=== PATIENT | female | born 1950 | race Caucasian/White ===

== ENCOUNTER 2024-12-24 19:10 | Inpatient (IN) | payer MEDICARE, OTHER, SELFPAY ==
[2024-12-24] VITALS (9 sets, daily range): BP systolic 130–162; BP diastolic 63–108; BMI 38.9; BMI 38.3
--- NOTE | 2024-12-24 14:36 | ED.GENMED ---
History of Present Illness
General
Chief Complaint: Breathing Problem
Source: patient and family
Exam Limitations: none
Time Seen by Provider: 12/24/24 14:21
History of Present Illness
History of Present Illness:
74yoF with a history of endometrial cancer s/p hysterectomy/radiation about a year ago currently in remission, atrial fibrillation s/p ablation, hypertension, hyperlipidemia, type 2 diabetes presenting with her daughter for evaluation of an abnormal
outpatient CT scan. Patient saw her gynecologic oncologist about 1.5 weeks ago and was complaining of fatigue. CT chest was ordered which was performed today. CT revealed acute bilateral segmental pulmonary emboli and she was advised to go to the
nearest ED for evaluation. Patient denies any shortness of breath. She does have some mild chest discomfort intermittently but nothing currently. She started to experience some discomfort in her right calf a few days ago. No syncope. Of note,
patient was taken off of her Xarelto about a month ago after undergoing an ablation for afib earlier this year.
Phy Exam
General Physical Exam
General Presentation: well appearing and no apparent distress
General Skin: warm and dry
General Habitus: normal
General Mental: alert
ENT Exam
ENT Exam: normocephalic
Cardiovascular Exam
Cardiovascular Exam: regular rate/rhythm, no edema and no murmur
Pulmonary Exam
Pulmonary Exam: lungs clear, no respiratory distress, no rales, no crackles, no rhonchi and no wheezing
Neurological Exam
Neurological Exam: alert
Pelon Coma Scale
Eye Opening: Spontaneous
Verbal Response: Oriented
Motor Response: Obeys Commands
GCS Total Score: 15
Musculoskeletal Exam
Musculoskeletal Exam: other (+R calf tenderness without skin changes or pitting edema)
Skin Exam
Skin Exam: normal color and warm/dry
Psychiatric Exam
Psychiatric Exam: normal mood/affect
Scores
Heart Failure Risk
Heart Failure Risk Score: Not Applicable
Course
Orders/Labs/Results
Orders:
Orders
12/24/24 14:34
Electrocardiogram (*1) Urgent
Reason for Study: Chest Pain
Cardiac Monitoring- Treatment ONCE
EKG- Treatment ONCE
Venous Doppler Lwr Ext Bilat [US Periph Venous LOWER Ext Ian] Urgent
Comment:
Reason For Exam: Recent dx of PE, R calf pain
12/24/24 14:40
Complete Blood Count/With Diff Urgent
Comprehensive Metabolic Panel Urgent
NT-proBNP Urgent
Troponin I Urgent
12/24/24 15:22
Case Management Consult ONCE
Case Management Consult: Discharge Planning
Comment: Xarelto pricing
12/24/24 16:12
Heparin 8,500 units IV NOW STA
Nursing to Place Non Medication Order As Directed
Physician Order: PTT 6 hours after initial start of Heparin infusion
12/24/24 16:15
Heparin 49212 Units/250 ml 25,000 units in 250 ml IV PER PROTOCOL
Weight to be used for heparin protocol in kilograms (kg):: 106
Protocol:: DVT/PE
PTT Goal Range to be used:: PTT 73 to 111 seconds
Order type:: Initial
INITIAL Infusion Dose (UNITS/KG/hr) & then follow protocol:: 18 units/kg/hr
Infusion Dose in UNITS/hr & then follow protocol (UNITS/hr):: 1,900
INFUSION RATE in mL/hr & then follow protocol (mL/hr):: 19
For DVT/PE algorithm, re-bolus for low PTT?: Yes
PTT less than or equal to 64 seconds:: Re-bolus 80 units/kg (max 10,000units). Increase by 400 units/hr
(+ 4mL/hr)
PTT 64.1 to 72.9 seconds:: Re-bolus 40 units/kg (max 5,000 units). Increase by 200 units/hr
(+ 2mL/hr)
PTT 73 to 111 seconds:: Target Range. No change in rate.
PTT 111.1 to 130.9 seconds:: Decrease rate by 200 units/hr (- 2 mL/hr)
PTT 131 to 199.9 seconds:: HOLD for 1 hr. Then decrease by 300 units/hr (- 3mL/hr)
PTT greater than or equal to 200 seconds:: HOLD for 2 hrs & Notify Provider. Then decrease by 400 units/hr
(- 4mL/hr)
Lab follow-up:: Each change, PTT q6h until 2 consecutive are therapeutic. Then
PTT daily.
12/24/24 16:19
PTT Urgent
Comment: Obtain baseline before beginning heparin infusion if not already collected
12/24/24 16:26
Heparin 8,500 units IV PRN PRN
12/24/24 16:27
Heparin 4,200 units IV PRN PRN
Abnormal Lab Results
12/24/24
14:40
RBC 3.77 L 10^6/uL
(4.20-5.40)
Hgb 9.7 L g/dL
(12.0-16.0)
Hct 31.9 L %
(37.0-47.0)
MCH 25.7 L pg
(27.0-31.0)
MCHC 30.4 L g/dL
(33.0-37.0)
RDW 16.1 H %
(11.5-14.5)
MPV 11.2 H fL
(7.4-10.4)
Absolute Monos (auto) 0.7 H 10^3/uL
(0.1-0.6)
Chloride 110 H mmol/L
(98-107)
BUN 22 H mg/dl
(7-17)
Glucose 131 H mg/dl
(70-99)
12/24/24 14:40
12/24/24 14:40
Vital Signs
Initial and Last Documented VS:
Initial Vital Signs
Temp Pulse Resp BP Pulse Ox
98.3 F 74 15 162/90 98
12/24/24 13:46 12/24/24 13:46 12/24/24 13:46 12/24/24 13:46 12/24/24 13:46
Last Documented Vital Signs
Temp Pulse Resp BP Pulse Ox
98.3 F 68 17 130/71 98
12/24/24 13:46 12/24/24 15:00 12/24/24 15:00 12/24/24 15:00 12/24/24 15:00
MDM/Problems Addressed
Differential Diagnosis Includes:
74yoF presenting after outpatient CT chest showed bilateral PEs. C/o fatigued but denies SOB. Also having R calf pain. Taken off of Xarelto 1 month ago. VSS and oxygen saturation is 98% on room air. She is well-appearing in no distress.
Differential diagnosis includes but is not limited to: Pulmonary embolism, DVT, heart strain
Initial ED plan: Copy of radiology report from outpatient CT able to be obtained. Imaging shows bilateral acute segmental pulmonary emboli. Will check cardiac labs, EKG, and venous duplex.
*Pulse Oximetry
SaO2: 98
Oxygen Mode of Delivery: Room air
Patient hypoxic: no (98%)
*EKG
Interpreted by ED Provider?: Yes
EKG Intrepretation Date: 12/24/24
Heart Rate: 65
Rate: normal
Rhythm: sinus
Alsey: normal axis
Interval: normal interval
QRS Pattern: normal QRS
Ischemia: other (Nonspecific T wave abnormality in anterior leads)
*Critical Care Note
Total Time (30-74mins, 75-104mins- exclusive of procedures): Not Applicable
Update Note
Update Note:
Both troponin and BNP are within normal limits. Venous duplex shows a occlusive thrombus in the right posterior tibial vein. Attempted to discharge patient with oral anticoagulation as she meets criteria for low risk PE. Patient's family member
is an GEOTHERMAL PRODUCTION MANAGER and does not feel comfortable with patient going home. IV heparin ordered and patient admitted for further management.
ED Attending Note
-
Portions of this chart may have been created with voice recognition software.� Occasional wrong word or��sound alike� substitutions may have occurred due to the inherent limitations of voice recognition software.
Discharge Plan
Departure
Patient Disposition: Admit
Date of Disposition: 12/24/24
Time of Disposition: 16:46
Presentation/result/management discussed w/ accepting MD/DO: Hospitalist
Discharge Problem:
Bilateral pulmonary embolism, Acute deep vein thrombosis (DVT) of right tibial vein
Prescriptions:
No Action
metoprolol succinate [Toprol XL] 50 mg Tablet Extended Release 24 Hr
50 mg PO BID
aspirin 81 mg Tablet,Delayed Release (Dr/Ec)
162 mg PO QPM
metformin 1,000 mg Tablet
1,000 mg PO BID
levothyroxine [Synthroid] 125 mcg Tablet
125 mcg PO DAILY
rosuvastatin [Crestor] 5 mg Tablet
5 mg PO QPM
Tradjenta 5 mg Tablet
5 mg PO DAILY
Referrals:
Isidro Edge CRNP [Family Provider, General]
Interventions
Interventions:
*Risk Screen - Suicide Last Done: 12/24/24 13:46
*General Assessment Last Done: 12/24/24 13:46
*Neglect/Abuse Screening Last Done: 12/24/24 13:46
ED- Cardiac Assessment Last Done: 12/24/24 14:54
ED- Pulmonary Assessment Last Done: 12/24/24 14:54
Discharge Date and Time
Print Language: Senegalese
[2024-12-24 14:51] LABS: Hematocrit 31.9 % (37.0-47.0); Hemoglobin 9.7 g/dL (12.0-16.0); Mean Corp Hgb Conc. 30.4 g/dL (33.0-37.0); Mean Corpuscular Volume 84.6 fL (81.0-99.0); Nucleated Red Blood Cells % 0 %; Platelet Count 181 10^3/uL (130-400); Red Cell Dist. Width 16.1 % (11.5-14.5)
[2024-12-24 15:16] LABS: ALT (SGPT) 19 U/L (0-35); AST (SGOT) 22 U/L (14-36); Albumin 3.8 g/dl (3.5-5.0); Alkaline Phosphatase 61 U/L (38-126); Blood Urea Nitrogen 22 mg/dl (7-17); Calcium 8.8 mg/dl (8.4-10.2); Carbon Dioxide 22 mmol/L (22-30); Chloride 110 mmol/L (98-107); Estimated Creatinine Clearance 60 ml/min; Glucose 131 mg/dl (70-99); Potassium 4.5 mmol/L (3.5-5.1); Sodium 140 mmol/L (135-145); Total Protein 6.6 g/dl (6.3-8.2); eGFR 59.12
[2024-12-24 15:35] LABS: Troponin I < 0.012 ng/ml
--- NOTE | 2024-12-24 16:23 | CM ---
CM received consult regarding Xarelto pricing but then was told pt is being admitted. I did attempt to reach [facility] but no one picked up in the pharmacy.
I met with pt and her daughter Theresa arguelles in ED. Pt is Omani speaking. Pt lives alone in apartment, has elevator access.
Independent in ADLs and personal care at baseline, ambulates with walker. Per daughter pt frequently stays with her also.
Will be staying with her daughter, 2 story home but has first floor set up.
PCP: Isidro Edge
Pharmacy: [facility]. [phone]
Anticipate discharge home pending ongoing medical evaluation, watch for needs
[2024-12-24] MEDS: HEPARIN 8500 UNITS IV (16:41)
[2024-12-24] MEDS: HEPARIN 25000 UNITS/250 ML IV (16:41)
[2024-12-24 16:43] LABS: APTT 25.7 Sec (23.4-35.0)
--- NOTE | 2024-12-24 18:03 | HPS.HSE ---
Addendum entered and electronically signed by Imsael Garcia MD 12/24/24 19:14:
74 y/o female with cardiac ablation in August. Xarelto was discontinued in October. Patient saw her oncologist as a routine follow-up and she was really tired therefore they ordered a CT because she also had some shortness of breath. CT was ordered
as outpatient showed PE. Also found to have a DVT
Ultrasound of the lower extremity-occlusive thrombus in the right posterior tibial vein
EKG-sinus rhythm incomplete right bundle branch block
CT-bilateral acute segmental PE. Indeterminate small pulmonary nodules largest 5 mm. Granulomatous calcifications in the right lung and right hilum/mediastinum in keeping with prior granulomatous infection
CVS: S1-S2 normal
Chest: CTA B/L
Abdomen: Soft, NT / Bowel sounds present
Extremities: No edema, mild tenderness right calf
AFTERSCHOOL BABYSITTER: Non focal exam
# DVT and PE
Weight-based Lovenox 100 mg twice daily
Needs workup with magazine hand as outpatient
Eventual transition to Xarelto or Eliquis
Hold off on the aspirin
# History of paroxysmal A-fib
Status post ablation in August 2024
Not on anticoagulation anymore since October
Continue metoprolol XL 50 mg twice daily
# Anemia-check iron studies and B12
# Diabetes-hemoglobin A1c needs to be updated
Continue linagliptin, Accu-Cheks and sliding scale coverage
Hold metformin because of IV dye
# Hypothyroidism-continue levothyroxine
# Hypertension-continue beta-blockers
# History of uterine cancer status post hysterectomy last year. Follows up with Dr. Simpson at [facility]
# Hyperlipidemia-continue Crestor
# Obesity with a BMI of 38
# Full code
Discussed with daughter at bedside
time over 75 min
Part of this note was created using voice recognition system. Occasional wrong word or��sound alike� substitutions may have inadvertently occurred due to the inherent limitations of voice recognition software. If noted kindly bring it to my
attention for correction.
Original Note:
Family Physician
-
Family Physician: ROSALINA Smith
Chief Complaint
-
sob,chest pain fatigue
History of Present Illness
74yoF with a history of endometrial cancer s/p hysterectomy/radiation about a year ago currently in remission, atrial fibrillation s/p ablation, hypertension, hyperlipidemia, type 2 diabetes presenting with her daughter for evaluation of an abnormal
outpatient CT scan. Patient saw her gynecologic oncologist about 1.5 weeks ago and was complaining of fatigue, sob with exertion and chest pain. CT chest was ordered which was performed today. CT revealed acute bilateral segmental pulmonary
emboli and she was advised to go to the nearest ED for evaluation. her Xarelto was discontinued in October s/p cardiac ablation in August for atrial fib. Patient denied headache, dizziness or syncope. Patient denied any fever, chills, cough,
congestion. Patient denied any abdominal pain, nausea, vomiting or diarrhea. Patient denied dysuria or hematuria.
Patient initiated on heparin drip. Admitting for further manage
Medical History
Past Medical History
Past Medical History: Reports Other
Additional Past Medical History:
Uterine cancer
History diabetes
Hypertension
Hypothyroidism
Past Surgical History: Reports Other
Additional Past Surgical History:
Cardiac ablation, hysterectomy
Social History
Tobacco: Non-smoker
Alcohol: None
Drug: None
Family History
Family History: Not pertinent
Allergies / Home Medications
Allergies reflects when Allergies were last updated in [facility].
Home Medications with original date entered in [facility]
Allergy/Medication List:
Allergies
Allergy/AdvReac Type Severity Reaction Status Date / Time
morphine Allergy Vomiting Verified 12/24/24 13:50
Home Medications
aspirin 81 mg tablet,delayed release 162 mg PO QPM 12/24/24
levothyroxine 125 mcg tablet (Synthroid) 125 mcg PO DAILY 12/24/24
linagliptin 5 mg tablet (Tradjenta) 5 mg PO DAILY 12/24/24
metformin 1,000 mg tablet 1,000 mg PO BID 12/24/24
metoprolol succinate 50 mg tablet,extended release 24 hr (Toprol XL) 50 mg PO BID 12/24/24
rosuvastatin 5 mg tablet (Crestor) 5 mg PO QPM 12/24/24
Review of Systems
-
Constitutional: Reports No Symptoms
EENT: Reports No Symptoms
Respiratory: Reports Trouble Breathing
Cardiac: Reports Chest Pain
Abdomen/GI: Reports No Symptoms
: Reports No Symptoms
Musculoskeletal: Reports No Symptoms
Skin: Reports No Symptoms
Neurological: Reports No Symptoms
Endocrine: Reports No Symptoms
Hematologic/Lymphatic: Reports No Symptoms
Psych: Reports No Symptoms
Physical Exam
Vital Signs
Vital Signs
Temp Pulse Resp BP Pulse Ox
98.3 F 68 17 130/71 98
12/24/24 13:46 12/24/24 15:00 12/24/24 15:00 12/24/24 15:00 12/24/24 15:00
Physical Exam
General: Well Developed, Well Nourished and No Apparent Distress
HEENT: NormoCephalic, Moist mucous membranes and Atraumatic
Respiratory: Clear
Cardiac: S1/S2 and Regular Rhythm; No Murmur or Rub
GI: Soft, Non Tender, Non Distended and Normal Bowel Sounds; No Organomegaly
Rectal: Deferred by Provider
Musculoskeletal: No Clubbing, No Cyanosis and Other (Bilateral lower extremities)
Skin: No Rash
Neuro: AO x 3 and Nonfocal/grossly intact
Psych: Calm
Laboratory Results
-
12/24/24 14:40
12/24/24 14:40
Laboratory Results
APTT 25.7 Sec (23.4-35.0) 12/24/24 16:19
Total Bilirubin 0.4 mg/dl (0.2-1.3) 12/24/24 14:40
AST 22 U/L (14-36) 12/24/24 14:40
ALT 19 U/L (0-35) 12/24/24 14:40
Alkaline Phosphatase 61 U/L (38-126) 12/24/24 14:40
Troponin I < 0.012 ng/ml 12/24/24 14:40
Data Reviewed
-
CT Scan: Report Reviewed by me
Lab Data: Labs Reviewed by me
Impression/Plan
-
# Bilateral segmental PEs
# Right tibial DVT
- initiated on Lovenox
- Duplex with impression of no evidence of deep venous thrombosis of the left lower extremity.Occlusive thrombus in the right posterior tibial vein.
# Anemia likely chronic
- Hemoglobin 9.7
- No active bleeding
- Obtain iron panel
# Hypothyroidism
- Levothyroxine continued
# Type 2 diabetes
- Tradjenta, hold metformin
- Sliding scale
- CHO diet
# History of paroxysmal A-fib
- Cardiac ablation in August, since then patient is in normal sinus rhythm
- Metoprolol continued
#hxt of uterine ca
-s/p hysterectomy in remission.
# Hyperlipidemia
- Rosuvastatin continue
# CODE STATUS full code
-
[2024-12-24 18:51] LABS: Iron 35 ug/dl (37-170)
[2024-12-24 19:01] LABS: Total Iron Binding Capacity 388 ug/dl (265-497)
[2024-12-24 19:27] LABS: Ferritin 6.4 ng/ml (11.1-264.0)
[2024-12-24] MEDS: TYLENOL 1000 MG PO (19:40)
[2024-12-24 19:59] LABS: Folate 5.3 ng/ml (2.76-20); Vitamin B12 > 1000 pg/ml (239-931)
[2024-12-24] MEDS: LOVENOX 100 MG SC (20:00)
[2024-12-24] MEDS: TOPROL XL 50 MG PO (22:28)
[2024-12-24 22:29] LABS: Glucose - Point of Care 140 mg/dl (70-99)
[2024-12-25 03:36] VITALS: BP 118/53
[2024-12-25] MEDS: SYNTHROID 125 MCG PO (05:28)
[2024-12-25 07:50] VITALS: BP 155/80
[2024-12-25 07:56] LABS: Hematocrit 31.0 % (37.0-47.0); Hemoglobin 9.6 g/dL (12.0-16.0); Mean Corp Hgb Conc. 31.0 g/dL (33.0-37.0); Mean Corpuscular Volume 83.6 fL (81.0-99.0); Platelet Count 175 10^3/uL (130-400); Red Cell Dist. Width 15.9 % (11.5-14.5)
[2024-12-25 08:26] LABS: Glucose - Point of Care 137 mg/dl (70-99)
[2024-12-25 09:02] LABS: Glycohemoglobin (HgbA1c) 7.8 % (4.0-5.6)
[2024-12-25] MEDS: TYLENOL 650 MG PO (09:07)
[2024-12-25] MEDS: JANUVIA 100 MG PO (09:07)
[2024-12-25] MEDS: TOPROL XL 50 MG PO (09:07)
[2024-12-25] MEDS: ELIQUIS 10 MG PO (09:07)
--- NOTE | 2024-12-25 09:31 | W.PN.HOSP.TC ---
Addendum entered and electronically signed by Wilfrid Horan MD 12/25/24 14:29:
dont use billing under this note, use discharge summary biling instead
Addendum entered and electronically signed by Wilfrid Horan MD 12/25/24 10:32:
#Mild chronic anemia
outpatient f/u for w/u advised
Original Note:
Today's Communication/Plan
-
see PN
Assessment / Plan
Assessment / Plan
74yo Angolan speaking F with Hx of uterine CA s/p resection, hypothyroidism, DM, HLD, HX of Afib s/p ablation with Xarelto stopped 1 mo ago came after her Oncologist found accidental subsegmental PE on outpatient CT scan. In ED also found Occlusive
thrombus in the right posterior tibial vein
A/P:
#Acute VTE
No provoking factor currently identified
Recommended to f/u with established oncologist for further w/u for thrombophilias and further cancer screeneing - patient verbalized understanding
Eliquis and CM for pricing
PESI 104 - Class III, intermediate risk with 3.2-7.1% 30 days mortlaity, however no hemodynamic instability found, proBNP low and no troponin elevation - appropriate for further outpatient follow up
#Indeterminate small pulmonary nodules largest 5 mm.
#Granulomatous calcifications in the right lung and right hilum/mediastinum in keeping with prior granulomatous infection
cont follow up with Oncologist for monitoring with serial CT chest
#Essential HTN
#Afib s/p ablation, paroxysmal
#PVCs
with loop recorder
cont to follow with established precipitation equipment tender
Previously had Valsatan stopped - started losartan now inpatient, BMP in 2 weeks
#DM type 2 with neuropahty
cont home meds
Accuchecks, Insulin SS and DM diet
#HLD
cont statin
#Obesity
BMI 38.3
sleep study as outpatient due to intermittent SOB
reduce calorie intake
DVT ppx Eliquis
Full code
I efrain spent at least 56min reviewing chart, test results and providing direct patient care
Anticipated Discharge: Within 24 hours
Subjective/Interval History
-
Date of Service: December 25, 2024
Objective Data
-
Labs:
Laboratory Results
12/25/24 12/25/24
00:30 07:36
WBC 6.3
Hgb 9.6 L
Hct 31.0 L
Plt Count 175
APTT Cancelled
Vital Signs:
Vital Signs
Temp Pulse Resp BP Pulse Ox
97.8 F 69 18 155/80 98
12/25/24 07:50 12/25/24 09:07 12/25/24 07:50 12/25/24 09:07 12/25/24 07:50
I&O
12/24/24 12/25/24 12/26/24
06:59 06:59 06:59
Intake Total 480 / 480
Balance 480 / 480
Review of Systems
-
History Source: Patient
All other systems: Reviewed and negative
Physical Exam
-
General: No Apparent Distress
HEENT: Normocephalic
Cardiac: Regular Rhythm
GI: Soft, Nontender and Nondistended
Musculoskeletal: No Clubbing, No Cyanosis and No Edema
Neuro: Awake, Alert, Oriented and AO x 3
Psych: Calm
--- NOTE | 2024-12-25 09:53 | CM ---
Addendum entered by Steve Mendoza 12/25/24 15:15:
D/c home today
IMM reviewed
Original Note:
CM was consulted for Eliquis pricing
Called [facility] [employer] to verify benefits and potential co pay cost. Per rx plan, Eliquis is covered w/ $0 co pays for both 30 day and 90 day retail and mail orders
Updated ordering physician
[2024-12-25] MEDS: COZAAR 25 MG PO (10:35)
[2024-12-25 11:35] VITALS: BP 124/72
[2024-12-25 12:33] LABS: Glucose - Point of Care 178 mg/dl (70-99)
--- NOTE | 2024-12-25 14:29 | W.DCSUMMARY ---
Discharge Summary
Discharge Data
Date of Admission: 12/24/24
Date of Discharge: 12/25/24
-
Pending Results: No
Hospital Course
74yo Kazakh speaking F with Hx of uterine CA s/p resection, hypothyroidism, DM, HLD, HX of Afib s/p ablation with Xarelto stopped 1 mo ago came after her Oncologist found accidental subsegmental PE on outpatient CT scan. In ED also found Occlusive
thrombus in the right posterior tibial vein. Started on Eliquis and recommended to follow up with established Retail Performance Specialist as outpatient, not hypotensive, not tachycardic and not hypoxic on discharge. Daughters report poor ambulation at home, which
also can be a reason. Medcially stabel for d/c home
I have spent at least 36min reviewing chart, test results and providing direct patient care
Patient was managed for:
#Acute VTE
#Indeterminate small pulmonary nodules largest 5 mm.
#Granulomatous calcifications in the right lung and right hilum/mediastinum in keeping with prior granulomatous infection
#Essential HTN
#Afib s/p ablation, paroxysmal
#PVCs
#DM type 2 with neuropahty
#HLD
#Obesity
#Mild chronic anemia
Discharge Plan
-
Patient Disposition: Home (Routine Discharge)
Discharge Diagnosis/Procedures: VTE
Diet: Diabetic, Carb Controlled
Driving Restrictions: As prior to admission
Blood Work: BMP with PCP in 2 weeks (since Losartan started)
Referrals:
Isidro Edge CRNP [Family Provider, General]
Additional Discharge Medication Instructions: Take Eliquis 10mg BID for 13 doses and on 01/01/25 AM dose switch to Eliquis 5mg BID
Prescriptions:
New
Eliquis DVT-PE Treat 30D Start 5 mg (74 tabs) tablets,dose pack
See Rx Instructions .ROUTE .COMPLEX Qty: 74 0RF
Rx Instructions:
orally per package directions
losartan 25 mg Tablet
25 mg PO DAILY Qty: 30 0RF
Continued
metoprolol succinate [Toprol XL] 50 mg Tablet Extended Release 24 Hr
50 mg PO BID
aspirin 81 mg Tablet,Delayed Release (Dr/Ec)
162 mg PO QPM
metformin 1,000 mg Tablet
1,000 mg PO BID
levothyroxine [Synthroid] 125 mcg Tablet
125 mcg PO DAILY
rosuvastatin [Crestor] 5 mg Tablet
5 mg PO QPM
Tradjenta 5 mg Tablet
5 mg PO DAILY
Discharge Orders:
Discharge Patient (As Directed); Ordered 12/25/24
Ordered By: Wilfrid Horan
Discharge Date and Time
Print Language: Kazakh
[2024-12-25 20:05] LABS: LDH 158 U/L (120-246)
== END 2024-12-25 15:03 | disposition home or self-care (01) | DRG 299 ==
LOC: 4 EAST ACU 19:10
PROVIDERS: Physician Assistant; Registered Nurse; ADMITTING PHYSICIAN Hospitalist; ATTENDING PHYSICIAN Internal Medicine; EMERGENCY PHYSICIAN Emergency Medicine; FAMILY PHYSICIAN Nurse Practitioner Gerontology
DX: I82.441 Acute embolism and thrombosis of right tibial vein (principal); I26.99 Other pulmonary embolism without acute cor pulmonale; R91.8 Other nonspecific abnormal finding of lung field; I10 Essential (primary) hypertension; I49.3 Ventricular premature depolarization; E11.40 Type 2 diabetes mellitus with diabetic neuropathy, unspecified; E66.9 Obesity, unspecified; E78.5 Hyperlipidemia, unspecified; D64.9 Anemia, unspecified; Z68.38 Body mass index [BMI] 38.0-38.9, adult; Z79.84 Long term (current) use of oral hypoglycemic drugs; Z79.890 Hormone replacement therapy; Z79.899 Other long term (current) drug therapy; Z90.710 Acquired absence of both cervix and uterus; Z85.42 Personal history of malignant neoplasm of other parts of uterus; E03.9 Hypothyroidism, unspecified; I45.10 Unspecified right bundle-branch block; I48.0 Paroxysmal atrial fibrillation
CPT/HCPCS: 80053; 82607; 82728; 82746; 82962; 83036; 83540; 83550; 83615; 83880; 84484; 85025; 85027; 85730; 93005; 93970; 96365; 96366; 99285